=== PATIENT | female | born 1985 | race Caucasian/White ===

== ENCOUNTER 2019-12-11 06:01 | Inpatient (IN) ==
[2019-12-11] MEDS ORDERED: FAMOTIDINE 20 MG/2 ML VIAL IV ONE (06:19)
[2019-12-11] MEDS ORDERED: CITRIC ACID/SODIUM CITRATE 30 ML UDCUP PO ONE (06:19)
[2019-12-11] MEDS ORDERED: CLINDAMYCIN INJ 900 MG in PREMIX 1 EACH IV ONE (06:19)
[2019-12-11] MEDS ORDERED: OXYTOCIN/LR 20 UNIT/1,000 ML BAG IV ONE ×2 (06:29→09:04)
[2019-12-11] MEDS ORDERED: LACTATED RINGERS 1,000 ML IV SCH ×2 (06:30→09:30)
[2019-12-11] MEDS ORDERED: METHYLERGONOVINE 0.2 MG/1 ML AMP ONE (06:32)
[2019-12-11] MEDS ORDERED: TRANEXAMIC ACID 1,000 MG/10 ML VIAL ONE (06:32)
[2019-12-11] MEDS ORDERED: miSOPROStoL 200 MCG TABLET ONE (06:32)
[2019-12-11] MEDS ORDERED: CARBOPROST TROMETHAMINE 250 MCG/ML AMP IM ONE (06:33)
[2019-12-11] MEDS ORDERED: SODIUM CHLORIDE 0.9% 0 ML IV ONE ×2 (06:34→06:35)
[2019-12-11] MEDS ORDERED: BUPIVACAINE SPINAL 0.75% 2 ML AMP SPINAL ONE (06:52)
[2019-12-11] MEDS ORDERED: ROPIVACAINE 0.5% 30 ML VIAL ONE (06:52)
[2019-12-11 07:01] LABS: Basophils % 0.3 % (0.0-0.8); Eosinophils # 0.1 10*3/uL (0.0-0.87); Eosinophils % 0.7 % (0.00-10.9); Hematocrit 36.3 VOL% (35.7-47.0); Hemoglobin 11.9 GM/DL (12.0-16.0); Immature Granulocytes % 0.5 %; Immature Granulocytes Absolute 0.04 #; Lymphocytes # 1.8 10*3/uL (1.4-4.0); Lymphocytes % 23.6 % (21.3-54.2); Mean Corpuscular HGB Conc 32.8 GM/DL (32-36); Mean Corpuscular Volume 94.8 FL (87-102); Neutrophils % 66.9 % (38.7-73.9); Platelet Count 228 T/CUMM (130-400); Red Blood Count 3.83 MC/CUMM (3.8-5.5); Red Cell Distribution Width 14.5 % (9.3-17.3); White Blood Count 7.4 T/CUMM (4-12)
[2019-12-11] MEDS ORDERED: ONDANSETRON 4 MG/2 ML VIAL IV PRN (09:04)
[2019-12-11] MEDS ORDERED: MAGNESIUM HYDROXIDE SUSP 30 ML UDCUP PO PRN (09:04)
[2019-12-11] MEDS ORDERED: ACETAMINOPHEN 325 MG TABLET PO PRN (09:04)
[2019-12-11] MEDS ORDERED: SIMETHICONE CHEW 80 MG TABLET PO PRN (09:04)
[2019-12-11] MEDS ORDERED: RHO(D) IMMUNE GLOBULIN 300 MCG SYRINGE IM ONE (09:04)
[2019-12-11 09:05] LABS: Apearance,Urine CLEAR (Clear); Bilirubin,Urine Negative (Negative); Blood, Urine Negative (Negative); Glucose,Urine (UA) Negative (Negative); Ketones,Urine Negative (Negative); Mucus,Urine Occasional /LPF (Occasional); Nitrite,Urine Negative (Negative); Protein,Urine Negative; RBC,Urine <1 /HPF (0-4); Urine Color Straw (Yellow); Urine Specific Gravity 1.005 (1.001-1.035); Urine Urobilinogen < 2.0 EU/DL (0.2-1.0)
[2019-12-11] MEDS ORDERED: ONDANSETRON 4 MG/2 ML VIAL ONE (11:41)
[2019-12-11] MEDS ORDERED: PHENYLEPHRINE 1 MG/10 ML SYRINGE IV ONE (11:41)
[2019-12-11] MEDS ORDERED: MEPERIDINE 50 MG/1 ML VIAL IV PRN (12:11)
[2019-12-11] MEDS: IBUPROFEN 800 MG TABLET PO PRN (13:15)
[2019-12-11] MEDS: ACETAMINOPHEN/CODEINE 300-30 MG TABLET PO PRN (17:15)
[2019-12-11] MEDS: CLINDAMYCIN INJ 900 MG in PREMIX 1 EACH IV SCH (17:46)
[2019-12-11] MEDS: DOCUSATE SODIUM 100 MG CAPSULE PO SCH (21:04)
[2019-12-11] MEDS: KETOROLAC 30 MG/1 ML VIAL IV PRN (21:05)
[2019-12-12] MEDS: CLINDAMYCIN INJ 900 MG in PREMIX 1 EACH IV SCH (02:05)
[2019-12-12 05:43] LABS: Basophils % 0.2 % (0.0-0.8); Eosinophils % 0.3 % (0.00-10.9); Hemoglobin 9.9 GM/DL (12.0-16.0); Immature Granulocytes % 0.6 %; Immature Granulocytes Absolute 0.05 #; Lymphocytes # 1.6 10*3/uL (1.4-4.0); Lymphocytes % 18.1 % (21.3-54.2); Mean Corpuscular Volume 93.8 FL (87-102); Monocytes % 7.4 % (1.7-12.7); Neutrophils % 73.4 % (38.7-73.9); Platelet Count 188 T/CUMM (130-400); Red Cell Distribution Width 14.5 % (9.3-17.3); White Blood Count 8.8 T/CUMM (4-12)
[2019-12-12] MEDS: KETOROLAC 30 MG/1 ML VIAL IV PRN ×3 (06:36→18:38)
[2019-12-12] MEDS: DOCUSATE SODIUM 100 MG CAPSULE PO SCH ×2 (09:37→21:32)
[2019-12-12] MEDS: MULTIVITAMIN (PRENATAL) TABLET PO SCH (12:30)
[2019-12-12] MEDS: IBUPROFEN 800 MG TABLET PO PRN ×2 (15:21→21:32)
[2019-12-13] MEDS ORDERED: KETOROLAC 10 MG TABLET PO PRN (00:30)
[2019-12-13] MEDS: IBUPROFEN 800 MG TABLET PO PRN ×3 (04:56→22:10)
[2019-12-13] MEDS ORDERED: LACTATED RINGERS 1,000 ML IV ONE (07:43)
[2019-12-13] MEDS ORDERED: BUTALBITAL/ACETAMIN/CAFFEINE 50-325-40 MG TABLET PO PRN (07:43)
[2019-12-13] MEDS ORDERED: SUMAtriptan 6 MG/0.5 ML VIAL SUBCUT ONE (07:44)
[2019-12-13] MEDS: ACETAMINOPHEN/CODEINE 300-30 MG TABLET PO PRN ×3 (08:20→20:17)
[2019-12-13] MEDS: DOCUSATE SODIUM 100 MG CAPSULE PO SCH ×2 (08:20→22:00)
[2019-12-13] MEDS: MULTIVITAMIN (PRENATAL) TABLET PO SCH (09:21)
[2019-12-13] MEDS: BUTALBITAL/ACETAMIN/CAFFEINE 50-325-40 MG TABLET PO SCH (17:30)
[2019-12-13] MEDS ORDERED: SUMAtriptan 6 MG/0.5 ML VIAL SUBCUT STA (18:37)
[2019-12-13] MEDS ORDERED: LORazepam 2 MG/1 ML VIAL IV ONE ×2 (20:42→21:00)
[2019-12-13] MEDS ORDERED: SUMAtriptan 6 MG/0.5 ML VIAL SUBCUT SCH (21:00)
[2019-12-13] MEDS: LACTATED RINGERS 1,000 ML IV SCH (21:06)
[2019-12-13] MEDS ORDERED: diphenhydrAMINE 50 MG/1 ML VIAL IV PRN (22:57)
[2019-12-13] MEDS ORDERED: HYDROCORTISONE 2.5% CREAM 30 GM TUBE TOP PRN (23:26)
[2019-12-14] MEDS: BUTALBITAL/ACETAMIN/CAFFEINE 50-325-40 MG TABLET PO SCH (01:41)
[2019-12-14] MEDS: IBUPROFEN 800 MG TABLET PO PRN ×2 (05:27→13:47)
[2019-12-14] MEDS: LACTATED RINGERS 1,000 ML IV SCH (05:29)
[2019-12-14] MEDS: MULTIVITAMIN (PRENATAL) TABLET PO SCH (09:11)
[2019-12-14] MEDS: DOCUSATE SODIUM 100 MG CAPSULE PO SCH (09:11)
[2019-12-14 11:05] VITALS: BP 120/63
== END 2019-12-14 15:40 | disposition home or self-care (01) | DRG 788 ==
LOC: N.LD 06:01 → N.OB 11:48
PROVIDERS: ADMIT Obstetrics & Gynecology; ATTEND Obstetrics & Gynecology
PROC: LDCSECT (ICD-10-PCS; 2019-12-11 07:45)